=== PATIENT | male | born 1980 | race Hispanic/Latino ===

== ENCOUNTER 2016-07-10 18:00 | Emergency (ER) | payer SELFPAY ==
[~2016-07-10] VITALS: Ht 170.2 cm; Wt 88.6 kg
[2016-07-10 18:18] VITALS: BP 135/74; PULSE 50; RESP 16; O2SAT 100
[2016-07-10 18:42] LABS: BASOPHILS % (AUTO) 0.3 % (0-3); EOSINOPHILS % (AUTO) 0.9 % (0-5); MONOCYTES % (AUTO) 6.3 % (4-12); Mean Corpuscular Hemoglobin 31.2 pg (27.0-35.0); NEUTROPHILS % (AUTO) 56.6 % (40-74); Platelet Count 176 bil/L (150-400)
--- NOTE | 2016-07-10 19:04 | ED.REPORT ---
HPI-General Illness Date of Service Jul 10, 2016 ED Provider: Rj Veronica MD 36 year old male with no significant PMHx presents to the ED with intermittent L sided chest pain that has been intermittent for 3 days. The pain has been constant for 2 days with intermittent severe "sharp pains". Movement and eating does not exacerbate the pain. He reports a minimal pain to the L arm yesterday, resolved. Pt denies SOB, cough, fever, chills, hx cardiopulmonary disease, Hx DVT, edema, recent immobilizations and recent surgeries. Pt is a current smoker. Nursing Notes Stated Complaint: CHEST PAIN, PAIN IN LEFT ARM Chief Complaint: Chest Pain Nursing Notes Reviewed: Yes Allergies: Coded Allergies: No Known Allergies (Unverified , 07/10/16) General Time Seen by MD: 19:02 Chief Complaint Chest pain Hx Obtained From: Patient Arrived By: Walk-in Sudden in Onset?: No Onset Occurred: 3 days ago Symptom Duration: Since onset Location: : Chest Quality: Painful Severity: Current: Moderate Associated with: Denies: Nausea, Shortness of breath, Vomiting Pertinent Negative: Exacerbated by nothing, Relieved by nothing Similar Sx Previous: No Past Medical History Past Medical History Denies Past Surgical History Denies Smoking History Current Every Day Smoker Social History Alcohol Use: "Social" Drug Use: THC Ambulatory Status Independent Review of Systems Full Review of Systems Constitutional: Denies: Chills, Fever Respiratory: Denies: Non-productive cough, Shortness of breath Cardiovascular: Reports: Chest pain, Denies: Edema GI: Denies: Abdominal pain, Diarrhea, Nausea, Vomiting Male: Denies Dysuria, Denies Flank pain Musculoskeletal: Reports: Extremity pain, Denies: Back pain Skin: Denies Diaphoresis, Denies Rash Neurologic: Denies: Change LOC, Headache Complete sys rev & neg: except as marked. Physical Exam Vital Signs Vital Signs Date Time Temp Pulse Resp B/P Pulse Ox O2 Delivery O2 Flow Rate FiO2 07/10/16 21:55 54 21 132/65 97 Room Air 07/10/16 20:08 55 19 128/62 96 Room Air 07/10/16 18:18 36.8 50 16 135/74 100 Room Air Initial VS: Reviewed General/Constitutional: Well-developed, Well-nourished Head / Eyes: Atraumatic, Normocephalic, PERRL ENT: Mucous membranes moist, Conjunctiva normal, No scleral icterus Neck: Supple, Full range of motion Abdomen / GI: Soft, Non-tender, No distention Extremities: Vascular intact, Neuro intact, No swelling (at calves), No tenderness (at calves) Skin: Warm, Dry, No cyanosis Neurologic: Alert, Oriented, Nonfocal Psychiatric: Mood/affect normal, Behavior normal, Normal thought content Respiratory / Chest: Breath sounds NL, Breath sounds = bilat, No respiratory distress, No rales, No rhonchi, No wheezing, No chest tenderness Cardiovascular: Heart rate NL, Regular rhythm, Heart sounds NL, No gallop, No murmurs, No rubs, Cap refill not delayed, Peripheral circulation NL (Good distal pulses) Interpretation & Diagnostics Lab Results Interpretation Result Diagram: 07/10/16182207/10/161822 Test 07/10/16 18:23 White Blood Count 7.7th/mm3 (3.8-10.1) Red Blood Count 4.62mil/mm3 (4.40-5.80) Hemoglobin 14.4g/dL (13.8-17.2) Hematocrit 41.6% (41.0-50.0) Mean Corpuscular Volume 90.0fL (81-100) Mean Corpuscular Hemoglobin 31.2pg (27.0-35.0) Mean Corpuscular Hemoglobin Concent 34.6% (32.0-37.0) Red Cell Distribution Width 12.6% (12.3-15.4) Platelet Count 176bil/L (150-400) Neutrophils (%) (Auto) 56.6% (40-74) Lymphocytes (%) (Auto) 35.6% (14-46) Monocytes (%) (Auto) 6.3% (4-12) Eosinophils (%) (Auto) 0.9% (0-5) Basophils (%) (Auto) 0.3% (0-3) Sodium Level 138mEq/L (134-144) Potassium Level 3.8mEq/L (3.5-5.2) Chloride Level 100mEq/L (97-108) Carbon Dioxide Level 23mmol/L (18-29) Blood Urea Nitrogen 11mg/dL (6-20) Creatinine 1.07mg/dL (0.76-1.27) Estimat Glomerular Filtration Rate 84mL/min (>59) Glucose Level 108mg/dL (60-99) Calcium Level 9.2mg/dL (8.5-10.1) Magnesium Level 2.0mg/dL (1.6-2.6) Total Bilirubin 0.2mg/dL (0.0-1.2) Aspartate Amino Transf (AST/SGOT) 17U/L (0-50) Alanine Aminotransferase (ALT/SGPT) 18U/L (0-44) Alkaline Phosphatase 57U/L (25-150) Troponin T < 0.010ug/L (0.0-0.011) Total Protein 7.3g/dL (6.4-8.4) Albumin 4.4g/dL (3.4-5.0) Hold [place] Top Tube Received (Received) General Lab Results Interp 1: Labs reviewed ECG Interpretation ECG Interpretation: J point elevation in the anteroseptal leads. No convincing ischemic changes. No prior ECG for comparison. Time: 18:15 Interpreted by: ED physician Normal ECG Interpretation: Normal axis, Normal intervals Rhythm / Conduction: Bradycardia (rate of 54) X-Ray Chest Interpretation Chest Xray Interpretation: IMPRESSION: 1. No acute cardiopulmonary disease. Dictated by: Gilson Elizondo M.D. on 07/10/2016 at 20:07 View: AP & lat Interpretation / Wet Read by: Interpret - Radiologist Re-Eval/Medical Decision Med Decision/Clinical Course 36 year old male with no significant PMHx presents to the ED with intermittent L sided chest pain that has been intermittent for 3 days. The pain has been constant for 2 days with intermittent severe "sharp pains". Upon arrival patient is afebrile stable vital signs in no apparent distress. Chest x-ray: No acute cardiopulmonary disease. CBC, CMP normal troponin normal. EKG: Caden rate of 54. J point elevation in the anteroseptal leads. No convincing ischemic changes. No prior ECG for comparison. At this time, patient's presentation is unconvincing for acute coronary syndrome. I am reassured by initial negative troponin and unremarkable EKG. Given duration of symptoms acute coronary syndrome seems exceedingly likely. The patient has no major risk factors for ACS. The patient's presentation is not suggestive of pulmonary embolism. He is without tachycardia, tachypnea, hypoxia or clinical findings just with DVT. I do not feel that workup for full exam was as indicated. There is no evidence of pneumonia or pneumothorax. Suspect his presentation is due to musculoskeletal pain. No findings of pericarditis. Discussed this with the patient and he feels reassured. He will apply ice packs to carry Profen as needed. Follow up and return precautions reviewed in detail and he was discharged in good condition. Time of Eval: 21:42 Re-Evaluation/Progress Note: Updated pt of labs, ECG and imaging results. Discussed plan for discharge and follow up. All questions addressed. Counseled Regarding: Diagnosis, Lab results, Need for follow-up, When/why to return to ED Discharge & Departure Primary Impression: Chest pain Chest pain type: unspecified Qualified Code: R07.9 - Chest pain, unspecified Disposition: Home Discharge Condition All VS Reviewed: Yes Condition: Improved Patient Instructions: Chest Pain (ED) Additional Instructions: Thank you for seeking care at [facility] emergency room. You were seen today for chest pain. Our primary goal today in the ED was to evaluate you for any life-threatening conditions. Your evaluation was reassuring. You can use ibuprofen and ice packs for pain. You should follow-up with your primary doctor in the next week. You should return to the ED immediately if you develop fevers, vomiting, cough , shortness of breath, chest pain, lightheadedness, weakness or any other concerning signs or symptoms. Thank you for letting us partake in your care today. Referrals: NOPCP (PCP) Scribe Attestation Portions of this note were transcribed by Mónica Renee. I, (Dr. Veronica) personally performed the history, physical exam and medical decision-making; I reviewed and confirmed the accuracy of the information in the transcribed note. Signed by: Mónica Renee. 07/10/2016, 2145 Rj Veronica MD Jul 10, 2016 19:04 óMnica Renee Jul 10, 2016 19:20
[2016-07-10 19:05] LABS: TROPONIN T < 0.010 ug/L (0.0-0.011)
[2016-07-10 20:08] VITALS: BP 128/62; PULSE 55; RESP 19; O2SAT 96
--- NOTE | 2016-07-10 20:08 | DRSVH ---
PROCEDURE: X-RAY CHEST, TWO VIEWS ([id number]) INDICATIONS: chest pain TECHNIQUE: 2 views of the chest were acquired. COMPARISON: None. FINDINGS: Surgical changes and devices: None. Lungs and pleura: No pleural effusions or pneumothorax. Lungs are clear. Mediastinum: Mediastinal contours are normal. Heart size is normal. Bones and chest wall: No suspicious bony abnormalities. Soft tissues appear unremarkable. IMPRESSION: 1. No acute cardiopulmonary disease. Dictated by: Gilson Elizondo M.D. on 07/10/2016 at 20:07 Approved by: Gilson Elizondo M.D. on 07/10/2016 at 20:07
[2016-07-10 21:55] VITALS: BP 132/65; PULSE 54; RESP 21; O2SAT 97
== END 2016-07-10 21:55 | disposition home or self-care (01) ==
LOC: SED 18:00
DX: R07.9 Chest pain, unspecified (principal); F17.200 Nicotine dependence, unspecified, uncomplicated